=== PATIENT | female | born 1975 | race Caucasian/White ===

== ENCOUNTER → 2018-06-14 | Outpatient (CLI) | payer OTHER | LOC: YCFC.O 06:55 | DX: Z00.01 Encounter for general adult medical examination with abnormal findings (principal) ==

== ENCOUNTER → 2018-08-04 | Outpatient (CLI) | payer OTHER ==
--- NOTE | 2018-08-04 15:51 | US ---
EXAM DESCRIPTION: Breast,Bilateral: Ultrasound CLINICAL HISTORY: 43 yearsFemaleABNORMAL MAMMO COMPARISON: Digital diagnostic tomosynthesis bilateral breasts on this visit. Bilateral screening digital breast tomosynthesis 07/16/2018. TECHNIQUE: Transcutaneous scanning of the bilateral breasts utilizing rosado-scale and Doppler modes. Scanning performed by the suspender cutter and Dr. Richardson. FINDINGS: Scanning of the right breast anterior third 9:00 to 10:00 sectors. From the nipple to 6 cm posteriorly. Mostly fibroglandular tissues with intermittent fatty deposits. No dominant focal mass or distinct cyst. No parenchymal edema or large calcifications. No overlying skin changes or abnormal vascularity. Scanning left breast posterior third upper outer quadrant 1:00 to 3:00 sectors. From the nipple to 10 cm posterior to the nipple. Heterogeneous fibroglandular and fatty echotexture in almost equal amounts. No dominant solid mass or distinct cyst. No parenchymal edema or large calcifications. No overlying skin changes. No abnormal vascularity IMPRESSION: 1. Bi-Rads Category 2: Benign. 2. Please refer to digital diagnostic bilateral breast tomosynthesis examination on this visit. The FINDINGS and the FOLLOW-UP plan were reviewed in person with the patient after the examination. Written communication explaining the IMPRESSION and FOLLOW-UP will be mailed to the patient and referring care provider. Electronically signed by: Luis Richardson MD 08/04/2018 3:50 PM [employer]
--- NOTE | 2018-08-04 16:19 | MAM ---
EXAM DESCRIPTION: Diagnostic Mammo,Bilateral: Digital Mammography CLINICAL HISTORY: 43 yearsFemaleABNORMAL MAMMOGRAM . Bilateral focal asymmetry. COMPARISON: Bilateral screening digital breast tomosynthesis 07/16/2018.. No prior reports available.. Targeted bilateral breast ultrasound included with this examination. TECHNIQUE: Bilateral CC LM MLO projection full-field images, digital mammographic tomosynthesis technique. CAD not utilized. FINDINGS: The breast parenchymal density pattern is: Heterogeneously dense breast tissue, which may obscure small masses. No skin thickening or nipple retraction focal asymmetry partially visualized at the 1:30 clock position of the left breast approximately 10 cm from the nipple. Focal asymmetry visualized in the upper outer quadrant of the anterior third of the right breast at the 10:00 position, approximately 6 cm from the nipple.. No significant changes compared to the screening study. ULTRASOUND: Scanning of the right breast anterior third 9:00 to 10:00 sectors. From the nipple to 6 cm posteriorly. Mostly fibroglandular tissues with intermittent fatty deposits. No dominant focal mass or distinct cyst. No parenchymal edema or large calcifications. No overlying skin changes or abnormal vascularity. Scanning left breast posterior third upper outer quadrant 1:00 to 3:00 sectors. From the nipple to 10 cm posterior to the nipple. Heterogeneous fibroglandular and fatty echotexture in almost equal amounts. No dominant solid mass or distinct cyst. No parenchymal edema or large calcifications. No overlying skin changes. No abnormal vascularity. IMPRESSION: Benign exam. BIRAD CATEGORY: 2 BENIGN FINDINGS. RECOMMENDATIONS: FOLLOW UP: Return to routine digital bilateral mammographic screening, one year interval from July 2018. The FINDINGS and the FOLLOW-UP plan were reviewed in person with the patient after the examination. Written communication explaining the IMPRESSION and FOLLOW-UP will be mailed to the patient and referring care provider. According to the [employer], yearly mammograms are recommended starting at age 40 and continuing as long as a woman is in good health. Any breast change noted on a breast self-exam should be reported promptly to the patient's healthcare provider. Breast MRI is recommended for women with an approximately 20-25% or greater lifetime risk of breast cancer, including women with a strong family history of breast or ovarian cancer and women who have been treated for Hodgkin's disease. A negative mammographic report should not delay tissue diagnosis in patients with significant clinical history or physical findings. Extremely dense breast tissue limits the sensitivity of digital mammography. Electronically signed by: Luis Richardson MD 08/04/2018 3:48 PM [facility]
--- NOTE | 2018-08-04 16:19 | US ---
EXAM DESCRIPTION: Breast,Bilateral: Ultrasound CLINICAL HISTORY: 43 yearsFemaleABNORMAL MAMMO COMPARISON: Digital diagnostic tomosynthesis bilateral breasts on this visit. Bilateral screening digital breast tomosynthesis 07/16/2018. TECHNIQUE: Transcutaneous scanning of the bilateral breasts utilizing rosado-scale and Doppler modes. Scanning performed by the utility worker roller shop and Dr. Richardson. FINDINGS: Scanning of the right breast anterior third 9:00 to 10:00 sectors. From the nipple to 6 cm posteriorly. Mostly fibroglandular tissues with intermittent fatty deposits. No dominant focal mass or distinct cyst. No parenchymal edema or large calcifications. No overlying skin changes or abnormal vascularity. Scanning left breast posterior third upper outer quadrant 1:00 to 3:00 sectors. From the nipple to 10 cm posterior to the nipple. Heterogeneous fibroglandular and fatty echotexture in almost equal amounts. No dominant solid mass or distinct cyst. No parenchymal edema or large calcifications. No overlying skin changes. No abnormal vascularity IMPRESSION: 1. Bi-Rads Category 2: Benign. 2. Please refer to digital diagnostic bilateral breast tomosynthesis examination on this visit. The FINDINGS and the FOLLOW-UP plan were reviewed in person with the patient after the examination. Written communication explaining the IMPRESSION and FOLLOW-UP will be mailed to the patient and referring care provider. Electronically signed by: Luis Richardson MD 08/04/2018 3:50 PM [employer]
== END ==
LOC: MAMMO 09:31
DX: N63.10 Unspecified lump in the right breast, unspecified quadrant (principal)